=== PATIENT | male | born 1945 | race Two or more races ===

== ENCOUNTER 2024-07-10 14:57 | Outpatient (CLI) | payer OTHER | END 2024-07-10 15:04 | disposition home or self-care (01) | LOC: LAB 14:57 | PROVIDERS: ATTEND Urology | DX: R97.20 Elevated prostate specific antigen [PSA] (principal) ==

== ENCOUNTER 2024-08-14 07:01 | Outpatient (CLI) | payer OTHER | END 2024-08-14 07:07 | disposition home or self-care (01) | LOC: SONOGRAMA 07:01 | PROVIDERS: ATTEND Urology | DX: R97.20 Elevated prostate specific antigen [PSA] (principal) ==